=== PATIENT | male | born 1995 | race Caucasian/White ===

== ENCOUNTER → 2018-03-05 13:30 | Outpatient (CLI) | payer BC, MEDICAID, SELFPAY ==
--- NOTE | 2018-03-05 13:33 | XR_ITS ---
XR foot wt bearing LT 3V HISTORY: ITS.REASON: pain ORDERING PHYSICIAN: Concepcion French DPM PATIENT AGE: 22 years COMPARISON: None FINDINGS: No fracture or dislocation. No lytic or blastic change. There is normal mineralization.. The joint spaces are well-preserved. No significant degenerative/arthritic changes. No erosive changes evident. IMPRESSION: Negative, no acute finding
--- NOTE | 2018-03-05 13:33 | XR_ITS ---
XR foot wt bearing RT 3V HISTORY: ITS.REASON: pain ORDERING PHYSICIAN: Concepcion French DPM PATIENT AGE: 22 years COMPARISON: None FINDINGS: There is a nondisplaced oblique fracture involving the tuft of the distal phalanx of the fourth toe. There is mild soft tissue swelling of the fourth toe. No other significant anomalies are evident. IMPRESSION: Nondisplaced oblique fracture distal phalanx fourth toe
== END ==
PROVIDERS: Visit Provider Podiatrist
DX: T14.8XXA Other injury of unspecified body region, initial encounter (principal)
CPT/HCPCS: 73630

== ENCOUNTER → 2018-04-04 16:10 | Outpatient (CLI) | payer BC, MEDICAID, SELFPAY ==
--- NOTE | 2018-04-04 16:11 | XR_ITS ---
XR foot wt bearing RT 3V Ordering Physician: Concepcion French DPM Patient Age: 22 years: Male HISTORY: ITS.REASON: fracture follow up TECHNIQUE: 3 views weightbearing right foot COMPARISON : 03/05/2018 right foot FINDINGS The oblique fracture passing through the distal tuft of the fourth toe is again seen. The fracture line is slightly less evident suggesting interval early healing at this nondisplaced fracture. The lateral film weightbearing shows relative pes planus at the foot. Metatarsals tarsals unremarkable. IMPRESSION: 1. early healing at the stable oblique fracture distal tuft fourth toe
== END ==
PROVIDERS: Visit Provider Podiatrist
DX: S92.501A Displaced unspecified fracture of right lesser toe(s), initial encounter for closed fracture (principal); M79.674 Pain in right toe(s)
CPT/HCPCS: 73630

== ENCOUNTER 2023-11-09 10:53 | Emergency (ER) | payer MEDICAID, SELFPAY ==
--- NOTE | 2023-11-09 10:51 | ECG_ITS ---
APPROVED REPORT Exam: Resting ECG HR:59 bpm ECG Measurements Heart Rate 59 AXES DC 175 P 80 QRSd 92 QRS 92 QT 355 T 79 QTc 354 Conclusion SINUS BRADYCARDIA WITH SINUS ARRHYTHMIA BORDERLINE RIGHT AXIS DEVIATION [QRS AXIS > 90] ST ELEVATION, PROBABLY EARLY REPOLARIZATION [ST ELEVATION WITH NORMALLY INFLECTED T-WAVE] BORDERLINE ECG UNCONFIRMED REPORT Electronically signed by : SOFY MUNOZ, 11/09/2023 17:10:33
[2023-11-09 10:53] VITALS: BP 121/83; PULSE 68; RESP 18; TEMP 36.6; O2SAT 100; BMI 21.6
--- NOTE | 2023-11-09 10:59 | HMH.EDGENADL ---
Discharge Plan Disposition Patient Disposition: Home, Self-Care Condition: Good Prescriptions Prescriptions: New dicyclomine 20 mg tablet 20 mg PO BID Qty: 20 0RF omeprazole 20 mg capsule,delayed release(DR/EC) 20 mg PO DAILY 28 Days Qty: 28 0RF ondansetron 4 mg tablet,disintegrating 4 mg PO Q8H PRN (Reason: nausea and vomiting) 3 Days Qty: 10 0RF No Action meloxicam [Mobic] 7.5 mg tablet 7.5 mg PO ONCE Qty: 30 2RF ibuprofen 600 MG tablet 600 mg PO Q6H PRN (Reason: Moderate Pain) Qty: 20 0RF Referrals Follow up/Referrals: Radha Bartlett [Primary Care Provider] - See instructions Activity Restrictions/Add. Instructions Additional Instructions/Restrictions: Please return to the emergency department if you experience any new or worsening symptoms. Clinical Impressions Clinical Impression: Upper respiratory infection, Acute chest pain Stand Alone Forms Stand Alone Forms: Work/School Release Instructions Patient Instructions: DI for Atypical Chest Pain Discharge ED Provider: Uzair Levy General Adult HPI General Chief complaint: Chest Pain Stated complaint: chest pain Time Seen by Provider: 11/09/23 10:55 History of Present Illness HPI narrative: Patient is a 28-year-old male with no reported chronic medical conditions who presents with upper respiratory symptoms, discomfort in his chest wall that is exacerbated by coughing, no syncope or presyncope or palpitations, this occurs in the setting of multiple sick contacts and decreased p.o. intake. He denies any recreational drug use. He denies any daily medications. He has had similar symptoms before in the setting of upper respiratory illnesses. He describes chills, no fevers, no abdominal pain, the discomfort he describes in his chest wall is nonpleuritic nonexertional nonradiating and reproducible to palpation. It is parasternal in nature. It is mild in characteristic. It is improving in course. He denies any significant coronary family history, denies any personal history of heart conditions, states he is presented to the emergency department in the past for acute chest pain multiple years ago however was told that his workup was reassuring Please note that above description of symptoms, in this electronic medical record under categorization of recalled from ER triage doctor by RN are reflective of an initial nursing assessment, however, is not reflective of my full history and physical exam that was personally taken and clarified. Consequentially, this preceding description of symptoms, which may include the patient's categorized chief complaint in the EMR, do not reflect my personal clinical impression, and the ultimate description of history of present illness and patient stated complaints should be deferred to this section of the note. Unless stated otherwise or congruent with this section of the note, additional signs, symptoms, or incongruence should be interpreted as inaccurate with my clinical impression. Related Data Previous Rx's Medication Instructions Recorded ibuprofen 600 mg tablet 600 mg PO Q6H PRN Moderate Pain 02/07/18 #20 tabs meloxicam 7.5 mg tablet (Mobic) 7.5 mg PO ONCE pain #30 tabs 04/04/18 dicyclomine 20 mg tablet 20 mg PO BID #20 tabs 11/09/23 omeprazole 20 mg capsule,delayed 20 mg PO DAILY 28 days #28 caps 11/09/23 release ondansetron 4 mg disintegrating 4 mg PO Q8H PRN nausea and 11/09/23 tablet vomiting 3 days #10 tabs Allergies Allergy/AdvReac Type Severity Reaction Status Date / Time No Known Allergies Allergy Verified 04/04/18 15:57 [facility] Disclaimer: The information contained in this section may have been updated after the patient was seen, as this information can be updated by other users. Social History Smoking Status: Current every day smoker alcohol intake: never substance use type: denies use current occupational status: employed Travel in the last 8 weeks: None ROS Obtained: Yes Systems reviewed as appropriate & no additional complaints except as documented As per HPI Physical Exam General General appearance: alert and in no apparent distress Comment: Fatigued appearing however nontoxic, chest wall tenderness to palpation, dry mucous membranes Head Head exam: atraumatic and normocephalic Eye Eye exam: Present normal appearance Neck Neck exam: Present normal inspection Chest Chest inspection: Present normal inspection and symmetric chest wall rise Respiratory Respiratory exam: Present normal lung sounds bilaterally; Absent respiratory distress Cardiovascular Cardiovascular exam: Present regular rate and normal rhythm Abdominal Exam Abdominal exam: Present soft Neurological Exam Neurological exam: Present alert and oriented X3 Psychiatric Psychiatric exam: Present normal affect and normal mood Skin Skin exam: Present warm and dry Medical Decision Making Medical Records Medical records reviewed: Yes I reviewed the patient's medical records. Abraham Inquiry Pt receiving controlled substance: No Vital Signs: 11/09/23 10:53 11/09/23 11:00 11/09/23 12:00 Temperature 97.9 F Temperature Source Oral Pulse Rate 67 64 Pulse Rate [Radial] 68 Respiratory Rate 18 Blood Pressure 116/78 135/81 Blood Pressure [Right Arm] 121/83 Blood Pressure Mean Blood Pressure Mean [Right Arm] 95 Blood Pressure Source Blood Pressure Source [Right Arm] Automatic Cuff Blood Pressure Position Blood Pressure Position [Right Arm] Sitting 02 Sat by Pulse Oximetry 100 99 98 Oxygen Delivery Method Room Air Room Air Room Air 11/09/23 12:31 11/09/23 13:04 Temperature 98.1 F Temperature Source Oral Pulse Rate 54 L 69 Pulse Rate [Radial] Respiratory Rate 18 18 Blood Pressure 86/64 L 151/97 H Blood Pressure [Right Arm] Blood Pressure Mean 71 Blood Pressure Mean [Right Arm] Blood Pressure Source Automatic Cuff Blood Pressure Source [Right Arm] Blood Pressure Position Sitting Blood Pressure Position [Right Arm] 02 Sat by Pulse Oximetry 100 Oxygen Delivery Method Room Air Lab Data Lab Results 11/09/23 10:58: WBC 8.7, RBC 4.83, Hgb 14.7, Hct 43.8, MCV 90.8, MCH 30.4, MCHC 33.5, RDW 12.3, Plt Count 311, MPV 7.5, Neut % (Auto) 51.0, Lymph % (Auto) 40.5, [place] % (Auto) 5.5, Eos % (Auto) 2.1, Baso % (Auto) 1.0, Neut # (Auto) 4.4, Lymph # (Auto) 3.5, [place] # (Auto) 0.5, Eos # (Auto) 0.2, Baso # (Auto) 0.1, Sodium 139, Potassium 4.0, Chloride 105, Carbon Dioxide 32 H, Anion Gap 6.0, BUN 11, Creatinine 1.10, Estimated Creat Clear 100, Estimated GFR 80, Est GFR ( Amer) 97, Glucose 93, Calcium 9.1, Total Bilirubin 0.7, AST 28, ALT 22, Alkaline Phosphatase 60, Troponin I < 0.01, Total Protein 7.0, Albumin 4.3, Globulin 2.7, Albumin/Globulin Ratio 1.6, Lipase 40, SARS-CoV-2 (PCR) Not detected, Influenza A Untype (PCR) Not detected, Influenza Type B (PCR) Not detected 11/09/23 10:58 11/09/23 10:58 Orders (Tests/Meds): ED MEDICATIONS Discontinued Medications Generic Name Dose Route Start Last Admin Trade Name Delio PRN Reason Stop Dose Admin Ondansetron HCl 4 mg 11/09/23 11:16 11/09/23 11:44 Ondansetron 4mg/2ml Vial IV 11/09/23 11:17 4 mg ONCE ONE Administration Sodium Chloride 10 ml 11/09/23 11:11 Sodium Chloride 0.9% 10ml Flush Syringe IV 12/09/23 11:10 NEEDED PRN Maintain IV Site ORDERS Category Date Time Status Chest XR 2 view (NOT portable) [XR chest 2V] Stat Exams 11/09/23 11:12 Completed Complete Blood Count Auto Diff Stat Lab 11/09/23 10:58 Completed Comprehensive Metabolic Panel Stat Lab 11/09/23 10:58 Completed Lipase Stat Lab 11/09/23 10:58 Completed Rapid PCR Covid and Flu A/B Stat Lab 11/09/23 10:58 Completed Troponin I Stat Lab 11/09/23 10:58 Completed HEART Score History (anamnesis): Slightly suspicious ECG: Non-specific disturbance Age: <45 years Risk factors: No known risk factors Troponin: </= normal limit HEART Score: 1 Medical Decision Narrative: Patient with history and exam per above presenting for evaluation of upper respiratory symptoms associated with chest wall discomfort that started shortly prior to arrival Diagnoses considered include ACS, pericarditis, PE, pneumothorax, pneumonia, GERD, costochondritis, referred pain, viral syndrome ED workup and treatment included: ED MEDICATIONS Discontinued Medications Generic Name Dose Route Start Last Admin Trade Name Delio PRN Reason Stop Dose Admin Ondansetron HCl 4 mg 11/09/23 11:16 11/09/23 11:44 Ondansetron 4mg/2ml Vial IV 11/09/23 11:17 4 mg ONCE ONE Administration Sodium Chloride 10 ml 11/09/23 11:11 Sodium Chloride 0.9% 10ml Flush Syringe IV 12/09/23 11:10 NEEDED PRN Maintain IV Site ORDERS Category Date Time Status Chest XR 2 view (NOT portable) [XR chest 2V] Stat Exams 11/09/23 11:12 Completed Complete Blood Count Auto Diff Stat Lab 11/09/23 10:58 Completed Comprehensive Metabolic Panel Stat Lab 11/09/23 10:58 Completed Lipase Stat Lab 11/09/23 10:58 Completed Rapid PCR Covid and Flu A/B Stat Lab 11/09/23 10:58 Completed Troponin I Stat Lab 11/09/23 10:58 Completed Labs were independently interpreted by me, significant for no leukocytosis, initial troponin undetectable Imaging was independently visualized and interpreted by me, significant for no acute consolidative process. Please refer to radiology report for full details. Patient's EKG was independently visualized and interpreted by me significant for sinus rhythm, early repolarization, no acute ST changes My clinical impression at this time is most consistent with hypovolemia, possible costochondritis, upper respiratory infection of unspecified etiology. After shared decision making including discussion of the benefits of serial troponin testing, patient is comfortable with discharge and request to be discharged at this time. I discussed my clinical impression with patient and answered all questions. The patient was advised that persistent or worsening symptoms require further evaluation. I confirmed the patient's understanding of this discussion. Critical Care Critical Care Time Critical Care Time: No
[2023-11-09 11:00] VITALS: BP 116/78; PULSE 67; O2SAT 99
--- NOTE | 2023-11-09 11:12 | XR_ITS ---
FINAL REPORT CLINICAL HISTORY: chest pain COMPARISON: None FINDINGS: PA and lateral views of the chest are obtained. There is no prior exam for comparison. The cardiac and mediastinal silhouettes are within normal limits. The lungs are clear. There is no pleural effusion, pneumothorax, or acute osseous abnormality. IMPRESSION: No radiographic evidence of acute cardiac or pulmonary disease. Reviewed, Interpreted and Dictated by Yuki Bravo MD Transcribed by Cherie Saucedo Authenticated and [facility]
[2023-11-09 11:17] LABS: Coronavirus 19, PCR Not Detected (NotDetected); Influenza A, PCR Not Detected (NotDetected); Influenza B, PCR Not Detected (NotDetected)
[2023-11-09 11:19] LABS: Basophils # 0.1 K/mm3 (0-0.2); Eosinophils # 0.2 K/mm3 (0.0-0.4); Eosinophils % 2.1 % (0.1-12.0); Hematocrit 43.8 % (42.0-52.0); Hemoglobin 14.7 g/dL (14.1-18.0); Lymphocytes # 3.5 K/mm3 (0.7-4.5); Lymphocytes % 40.5 % (10-50); Mean Corpuscular HGB Conc 33.5 g/dL (31.8-35.4); Mean Corpuscular Hemoglobin 30.4 pg (27.0-31.2); Mean Corpuscular Volume 90.8 fl (80-94); Mean Platelet Volume 7.5 fl (7.4-10.4); Monocytes # 0.5 K/mm3 (0.1-1.0); Monocytes % 5.5 % (1.7-9.3); Neutrophils # 4.4 K/mm3 (1.8-7.8); Platelet Count 311 K/mm3 (142-424); Red Blood Count 4.83 M/mm3 (4.60-6.20); Red Cell Distribution Width 12.3 % (11.5-17.5); White Blood Count 8.7 K/mm3 (4.8-10.8)
[2023-11-09 11:27] LABS: Alanine Aminotransferase 22 U/L (12-78); Albumin Level 4.3 g/dl (3.5-5.0); Albumin/Globulin Ratio 1.6 (1.1-1.8); Alkaline Phosphatase 60 U/L (38-126); Aspartate Amino Transferase 28 U/L (17-59); Bilirubin,Total 0.7 mg/dl (0.2-1.3); Blood Urea Nitrogen 11 mg/dl (9-20); Calcium 9.1 mg/dl (8.4-10.2); Carbon Dioxide 32 mmol/L (22.0-30.0); Chloride 105 mmol/L (98-107); Creatinine Clearance Estimated 100 mL/min (50-200); Estimated Glomerular Filt Rate 80 ml/min (>60); GFR (African American) 97 ML/MIN (>60); Globulin 2.7 g/dL (1.3-3.2); Glucose 93 mg/dl (74-100); Sodium 139 mmol/L (136-145)
--- NOTE | 2023-11-09 11:28 | PC.NURSE ---
PT TO XR
--- NOTE | 2023-11-09 11:32 | PC.NURSE ---
Addendum entered by Carolina Salmeron, EMT 11/09/23 11:33: from xray Original Note: pt return from ct
[2023-11-09] MEDS: ONDANSETRON 4MG/2ML VIAL 4 MG IV (11:44)
[2023-11-09 12:00] VITALS: BP 135/81; PULSE 64; O2SAT 98
[2023-11-09 12:12] LABS: Troponin I < 0.01 ng/ml (0.00-0.034)
--- NOTE | 2023-11-09 12:12 | PC.NURSE ---
pt is resting in bed no needs at this time call light in reach
[2023-11-09 12:31] VITALS: BP 86/64; PULSE 54; RESP 18; O2SAT 100
[2023-11-09 12:42] LABS: Lipase 40 U/L (23-300)
--- NOTE | 2023-11-09 12:58 | PC.NURSE ---
rounded on pt stated no needs at this time,call light in reach
[2023-11-09 13:04] VITALS: BP 151/97; PULSE 69; RESP 18; TEMP 36.7; O2SAT 98
== END 2023-11-09 13:05 | disposition home or self-care (01) ==
PROVIDERS: Emergency Provider Emergency Medicine; PCP Nurse Practitioner Family
DX: R07.89 Other chest pain (principal); R05.9 Cough, unspecified; R68.83 Chills (without fever); J06.9 Acute upper respiratory infection, unspecified; F17.200 Nicotine dependence, unspecified, uncomplicated
CPT/HCPCS: 71046; 80053; 83690; 84484; 85025; 87636; 93005; 96374; 99285; J2405

== ENCOUNTER 2024-08-26 11:16 | Emergency (ER) | payer MEDICAID, SELFPAY ==
[2024-08-26 11:25] VITALS: BP 121/75; PULSE 76; RESP 19; TEMP 36.8; O2SAT 98; BMI 22.3
--- NOTE | 2024-08-26 11:40 | US_ITS ---
FINAL REPORT CLINICAL HISTORY: PAIN TO LEFT TESTICLE-- PT STATES BB SIZE NODLE LOWER LEFT FINDINGS: SCROTAL ULTRASOUND Testes have a homogeneous architecture. No masses are seen. Normal flow is demonstrated by Doppler exam. There is a small epididymal cyst on the right measuring 4 mm. There is no evidence of torsion. There is mild prominence of the left epididymis raising question of epididymitis. Small left hydrocele is identified. IMPRESSION: No evidence of testicular neoplasm. Probable left epididymitis with epididymal enlargement and small left hydrocele. Reviewed, Interpreted and Dictated by Chantal Cardoza MD Transcribed by Mikki Abdullahi Authenticated and [facility]
--- NOTE | 2024-08-26 11:50 | ED_ITS ---
Discharge Plan Disposition Patient Disposition: Home, Self-Care Condition: Good Prescriptions Prescriptions: New levofloxacin 500 mg tablet 500 mg PO DAILY Qty: 10 0RF No Action meloxicam [Mobic] 7.5 mg tablet 7.5 mg PO ONCE Qty: 30 2RF ibuprofen 600 MG tablet 600 mg PO Q6H PRN (Reason: Moderate Pain) Qty: 20 0RF dicyclomine 20 mg tablet 20 mg PO BID Qty: 20 0RF omeprazole 20 mg capsule,delayed release(DR/EC) 20 mg PO DAILY 28 Days Qty: 28 0RF ondansetron 4 mg tablet,disintegrating 4 mg PO Q8H PRN (Reason: nausea and vomiting) 3 Days Qty: 10 0RF Referrals Follow up/Referrals: Radha Bartlett [Primary Care Provider] - See instructions Isrrael Franco MD [Staff Physician] - See instructions (Call office for appointment) Activity Restrictions/Add. Instructions Additional Instructions/Restrictions: Take medication as prescribed Follow up with your Family Doctor Follow up with Urology Go straight to ER if any worsening of tenderness or swelling in your scrotum Clinical Impressions Clinical Impression: Epididymitis Instructions Patient Instructions: Epididymitis, DI for Epididymitis, Levofloxacin Print Language Print Language: Danish Discharge ED Provider: Farideh Ellis [facility] [place] HPI General Stated complaint: mass on testicle Mode of Arrival: Ambulatory Source of Information: Patient Limitations: No Limitations Time Seen by Provider: 08/26/24 11:50 Description of Symptoms (Recalled from Triage Doc. by RN): PATIENT C/O LUMP AND PAIN TO LEFT TESTICLE THAT HE NOTICED YESTERDAY. PATIENT STATES PAIN IS WORSE TODAY. PATIENT DENIES ANY PAIN OR PROBLEMS WITH URINATION HEENT Symptoms (Recalled from RN notes): No Resp Symptoms (Recalled from RN notes): No Skin Symptoms (Recalled from RN notes): No MS Symptoms (Recalled from RN notes): No Functional Status (Recalled from RN notes): WNL History of Present Illness Provider Complaint: Patient states that last night he noticed a lump in his left testicle States that it was a little sore but today the soreness is worse Denies trouble urinating, denies known injury, denies stomach or back pain Related Data Previous Rx's ?Medication ?Instructions ?Recorded ibuprofen 600 mg tablet 600 mg PO Q6H PRN Moderate Pain 02/07/18 #20 tabs meloxicam 7.5 mg tablet (Mobic) 7.5 mg PO ONCE pain #30 tabs 04/04/18 dicyclomine 20 mg tablet 20 mg PO BID #20 tabs 11/09/23 omeprazole 20 mg capsule,delayed 20 mg PO DAILY 28 days #28 caps 11/09/23 release ondansetron 4 mg disintegrating 4 mg PO Q8H PRN nausea and 11/09/23 tablet vomiting 3 days #10 tabs levofloxacin 500 mg tablet 500 mg PO DAILY #10 tabs 08/26/24 Allergies Allergy/AdvReac Type Severity Reaction Status Date / Time No Known Allergies Allergy Verified 04/04/18 15:57 Worker's Comp Is this a Worker's Comp case?: No [facility] Disclaimer: The information contained in this section may have been updated after the patient was seen, as this information can be updated by other users. Social History (Updated 11/11/23 @ 10:57 by Uzair Levy MD) Smoking Status: Current every day smoker alcohol intake: never substance use type: denies use current occupational status: employed Travel in the last 8 weeks: None Have you lived/traveled outside [place] in past 30 days?: No Contact w/someone who lives/traveled outside US past 30 days?: No Exposure to someone with infectious disease in past 14 days?: No Do you have a fever (greater than 100.4 F or 38 C)?: No Have you tested positive for COVID-19: No Exposed to someone with COVID-19 in past 14 days?: No Do you have a sore throat?: No Do you have a cough?: No Do you have any weakness?: No Do you have any diarrhea?: No Are you experiencing any unusual bleeding?: No Do you have any muscle aches/pain?: No Do you have any abdominal pain?: No Are you experiencing loss of taste or smell?: No ROS Obtained: Yes All systems reviewed & no additional complaints except as documented and Yes Systems reviewed as appropriate & no additional complaints except as documented Constitutional Constitutional: Reports system reviewed and no additional complaints, except as documented, Reports as per HPI, Denies body ache, Denies chills and Denies fever(s) ENT Ears, Nose, Mouth, and Throat: Reports system reviewed and no additional complaints, except as documented and Reports as per HPI Cardiovascular Cardiovascular: Reports system reviewed and no additional complaints, except as documented and Reports as per HPI Respiratory Respiratory: Reports system reviewed and no additional complaints, except as documented and Reports as per HPI Gastrointestinal Gastrointestingal: Reports system reviewed and no additional complaints, except as documented and as per HPI; Denies abdominal pain, nausea or vomiting Genitourinary Male Genitourinary: Reports system reviewed and no additional complaints, except as documented, Reports as per HPI, Denies difficulty urinating, Denies flank pain, Denies genital lesions, Denies genital pain, Denies hematuria, Reports testicular pain (pain in left testicle area), Denies urinary frequency and Denies urinary urgency Musculoskeletal Musculoskeletal: Reports system reviewed and no additional complaints, except as documented, Reports as per HPI and Denies back pain Physical Exam General General appearance: alert and in no apparent distress Respiratory Respiratory exam: Present normal lung sounds bilaterally; Absent respiratory distress or wheezes Cardiovascular Cardiovascular exam: Present regular rate, normal rhythm and normal heart sounds Abdominal Exam Abdominal exam: Present soft and normal bowel sounds; Absent distention, tenderness, guarding or rebound exam: Present testicular tenderness (left side); Absent urethral discharge or scrotal swelling Expanded Exam exam: Absent penile swelling, erythema, balanitis, priapism or ulcerations Scrotal exam: left: testicular tenderness and epididymal tenderness and bilateral: cremasteric reflex present Neurological Exam Neurological exam: Present alert, oriented X3 and normal gait Medical Decision Making Medical Records Screening: Per USPSTF and CDC recommendations, given the prevalence of disease in our region, it is our hospital?s policy to screen for HIV and viral Hepatitis for all patients aged 18 and over and those with ongoing risk factors. Abraham Inquiry Pt receiving controlled substance: No Abraham was queried for this patient: No Vital Signs: 08/26/24 11:25 Temperature 98.3 F Temperature Source Oral Pulse Rate [Left Brachial] 76 Respiratory Rate 19 Blood Pressure [Left Arm] 121/75 Blood Pressure Mean [Left Arm] 90 Blood Pressure Source [Left Arm] Automatic Cuff Blood Pressure Position [Left Arm] Sitting 02 Sat by Pulse Oximetry 98 Oxygen Delivery Method Room Air Lab Data Lab results reviewed: Yes I reviewed the patient's lab results. Orders (Tests/Meds): ORDERS Category Date Time Status UA [Urinalysis and Microscopic] Stat Lab 08/26/24 11:43 Ordered Testicular US [US Testicular] Stat Ultrasound 08/26/24 11:[address] Data ED CT Reviewed: Yes I have viewed the radiologist's interpretation US Data US Images: Other (testicular US) ED US Reviewed: Yes I have viewed radiologist's interpretation Findings Narrative: IMPRESSION: No evidence of testicular neoplasm. Probable left epididymitis with epididymal enlargement and small left hydrocele.
[2024-08-26 12:30] LABS: Microscopic, Urine URINE MICROSCOPIC (MICROSCOPIC)
[2024-08-26 13:52] LABS: Appearance,Urine CLEAR (Clear); Bilirubin,Urine Negative (Negative); Blood, Urine Negative (Negative); Color,Urine YELLOW (Yellow); Glucose,Urine (UA) Negative (Negative); Ketones,Urine Negative (Negative); Leukocyte Esterase,Urine Negative (Negative); Nitrate,Urine Negative (Negative); Protein,Urine Negative (Negative); Urobilinogen,Urine 0.2 EU/dl (0.2)
[2024-08-26 14:06] LABS: Squamous Epithelial Cell,Urine Occasional #/hpf (0-5); WBC,Urine Occasional #/hpf (0-3)
[2024-08-26] MEDS: cefTRIAXone 500MG VIAL 500 MG IM (14:10)
[2024-08-26] MEDS: LIDOCAINE 1% 5ML PF VIAL IM (14:10)
[2024-08-26 14:11] VITALS: BP 121/75; PULSE 76; RESP 19; TEMP 36.8; O2SAT 98
[2024-08-27 22:17] LABS: Neisseria gonorrhoeae, NAA Negative (Negative)
== END 2024-08-26 14:21 | disposition home or self-care (01) ==
PROVIDERS: Emergency Provider Nurse Practitioner; PCP Nurse Practitioner Family
DX: N45.1 Epididymitis (principal); D29.22 Benign neoplasm of left testis; N50.812 Left testicular pain
CPT/HCPCS: 76870; 81001; 87491; 87591; 99212; G0381; J0696

== ENCOUNTER 2025-04-30 10:41 | Outpatient (CLI) | payer MEDICAID, SELFPAY ==
--- NOTE | 2025-04-30 | CA_ITS ---
APPROVED REPORT Exam: Exercise Treadmill Technologist: Kendra Valdivia Ht: 5 ft 11 in Wt: 157 lbs BSA: 1.90 m2 Medical History Medications: Rosuvastatin Stress Test Details Test: Exercise stress testing was performed using a Steve protocol. HR Resting HR: 68 bpm Max Heart Rate (APMHR): 192 bpm Max HR Achieved: 165 bpm Target HR (85% APMHR): 163 bpm % of APMHR: 86 Recovery HR: 92 bpm HR response to stress: Normal HR response to stress BP Resting BP: 120.0/79.0 mmHg Max BP: 138.0/70.0 mmHg Recovery BP: 114.0/73.0 mmHg ECG Resting ECG: SR incomplete RBBB- No ectopy. Stress EC.[address] depression ST Change: PACs Clinical Exercise duration: 9:25 min Highest Stage Achieved: IV Exercise capacity: 10.3 METs Stress ECG Conclusion Test stopped due to leg fatigue. Max HR: 160 % of PM: 83% Max BP: 138/70 METs: 10.3 Test stopped due to: leg fatigue. Symptoms: None. Arrhythmias/Ectopy: PAC. ST-T Changes: 0.[address] segment changes. CONCLUSION Average exercise capacity. No evidence of ischemia on ECG at peak stress. Electronically signed by : Rachel Alberto MD 04/30/2025 15:44:59
--- OUTSIDE RECORDS SUMMARY | 2025-04-30 10:42 | XMS_ITS | Continuity of Care Document ---
Author Name [facility] Organization [facility] Care Team Providers Care Patent Solicitor Name Role Phone [facility] Unavailable Unavailable Problems Combined list of problems from Department of Defense and Veterans Affairs facilities. It does not include entries that were removed or entered in error. Problem Status Onset Date Problem Type Date of Resolution Comme nts Source Suicide attempt Active Condition DoD Other recurrent depressive disorders Active Condition DoD Allergies, Adverse Reactions, Alerts Combined list of allergies from Department of Defense and Veterans Affairs facilities. It does not include entries that were removed or entered in error. Substance Category Reaction Severity Reaction type Status Date Reported Comments Source No Known Allergies Drug allergy (disorder) active 0 [facility] Immunizations Combined list of available immunizations from the Department of Defense and Veterans Affairs facilities. Immunization Series Date Given Administered By Site Reaction Lot Number CVX Code Drug Computer Lab Aide Status Comments Source poliovirus vaccine, inactivated 2 2019 DAVIDSON CHEN [id number] 10 Seqirus (SEQ) complet ed polioviru s vaccine, inactivat ed DoD tetanus toxoid, reduced diphtheria toxoid, and acellular pertu is vaccine, adsorbed 1 2019 DAVIDSON CHEN [id number] [facility] SmithKline (SKB) complet ed tetanus toxoid, reduced diphtheri a toxoid, and acellular pertussis vaccine, adsorbed DoD meningococcal oligosacchari de (groups A, C, Y and W-135) diphtheria toxoid conjugate vaccine (MCV4O) 1 2019 DAVIDSON CHEN [id number] Sanofi Pasteur (PMC) complet ed meningoco ccal oligosacc haride (groups A, C, Y and W-135) diphtheri a toxoid conjugate vaccine (MCV4O) DoD Adenovirus, type 4 and type 7, live, oral 1 2019 DAVIDSON CHEN [id number] 143 [facility] ([facility]) complet ed Adenoviru s, type 4 and type 7, live, oral DoD Influenza, injectable, Madin [place] Canine Kidney, preservative free, quadrivalent 1 2019 DAVIDSON CHEN [id number] 171 Seqirus (SEQ) complet ed Influenza , injectabl e, Madin Mariajose Canine Kidney, preservat virgie free, quadrival ent DoD measles, mumps and rubella virus vaccine 1 2019 KATH LOPEZ [id number] Merck (MSD) compl et ed measles, mumps and rubella virus vaccine DoD poliovirus vaccine, inactivated 1 2019 KATH LOPEZ [id number] 10 Seqirus (SEQ) com plet ed polioviru s vaccine, inactivat ed DoD hepatitis B vaccine, adult dosage 1 2019 KATH LOPEZ [id number] SmithKline (SKB) complet ed hepatitis B vaccine, adult dosage DoD hepatitis A vaccine, adult dosage 1 2019 KATH LOPEZ [id number] SmithKline (SKB) complet ed hepatitis A vaccine, adult dosage DoD tetanus toxoid, reduced diphtheria toxoid, and acellular pertu is vaccine, adsorbed 2019 KATH LOPEZ [id number] 115 SmithKline (SKB) complet ed tetanus toxoid, reduced diphtheri a toxoid, and acellular pertussis vaccine, adsorbed DoD meningococcal oligosacchari de (groups A, C, Y and W-135) diphtheria toxoid conjugate vaccine (MCV4O) 2019 KATH LOPEZ [id number] 136 Sanofi Pasteur (PMC) complet ed meningoco ccal oligosacc haride (groups A, C, Y and W-135) diphtheri a toxoid conjugate vaccine (MCV4O) DoD Adenovirus, type 4 and type 7, live, oral 2019 KATH LOPEZ [id number] 143 [employer] ([facility]) complet ed Adenoviru s, type 4 and type 7, live, oral DoD Influenza, injectable, Madin [place] Canine Kidney, preservative free, quadrivalent 1 2019 KATH LOPEZ [id number] 893 171 Seqirus (SEQ) complet ed Influenza , injectabl e, Madin [place] Canine Kidney, preservat virgie free, quadrival ent DoD Encounters Combined list of: 1) Encounters from Department of Veterans Affairs facilities going backup to the last 18 months, not all VA inpatient encounters are included; 2) Encounters from the Department of Defense facilities going backup to 280 months. Location Location Details Encounter Type Encounter Number Reason For Visit Attending Provider ADM Date DC Date Status [facility] [id number] UJVENAL MAYA 11/26 Released w/o Limitations [facility] Dillan carroll(MCR D Hearing Conserv ation) [facility] n([facility]) OUTPATIENT [id number] DAVE LAGUNAS Damaris 11/26 Released w/o Limitations [facility] Dillan carroll([facility] Optomet ry Clinic) [facility] n([facility]D [employer]) OUTPATIENT [id number] INITIAL APPOINT MENT FOR IMMUNIZ ATYOLY CHEN DAVIDSONKATLYN DAVIS 12/02 Released w/o Limitations [facility] Dillan carroll(MCR D [employer] ) [facility] melita(MCRD Recruit Sick Call) OUTPATIENT [id number] Notes Entered by: TYRONE LAGUNA 15 Dec 2019 0813 ------- ------- ------- ------- -- ISO-Pos sible Sinusit is DELL PIZARRO 12/14 Sick at Home/Quarter s [facility] Dillan carroll(MCR D Recruit Sick Call) [facility] melita(MCRD Recruit Sick Call) OUTPATIENT [id number] Notes Entered by: TYRONE LAGUNA 18 Dec 2019 0738 ------- ------- ------- ------- -- ISO- URI f/u DELL PIZARRO 12/17 Released w/o Limitations [facility] Dillan carroll(MCR D Recruit Sick Call) [facility] melita(MCRD Recruit Sick Call) OUTPATIENT [id number] Notes Entered by: TYRONE LAGUNA 19 Dec 2019 0733 ------- ------- ------- ------- -- MRP- Rib Pain DELL PIZARRO 12/18 Released with Work/Duty Limitations [facility] Dillan glen(MCR D Recruit Sick Call) [facility] n([facility] Rec[employer] Medical Process) OUTPATIENT [id number] Notes Entered by: Thong MCNAIR 19 Jan 2020 1442 ------- ------- ------- ------- -- INITIAL VISIT FOR IMMUNIZ ATIONS JIN URBINA 01/18 Released w/o Limitations [facility] Dillan carroll([facility] [employer] ) [facility] Sparkle hua([facility] Med Dispo) OUTPATIENT [id number] Notes Entered by: Scott THOMPSON 27 Jan 2020 1033 ------- ------- ------- ------- -- YAMEL SHAFFER/ JUSTINE WELDON 01/26 Released w/o Limitations [facility] Dillan carroll([facility] Med Dispo) Procedures Combined list of: 1) Procedures from Department of Veterans Affairs facilities going back up to thelast 18 months, not all VA non-surgical procedures are included; 2) All procedures from the Department of Defense facilities. Procedure Procedure Type Code Date Perfomer Comments Sour e PSYCHIATRIC DIAGNOSTIC EVALUATION 0 [facility] SKIN TEST; TUBERCULOSIS, INTRADERMAL 0 [facility] MENINGOCOCCAL CONJUGATE VACCINE, SEROGROUPS A, C, W, Y, QUADRIVALENT, DIPHTHERIA TOXOID CARRIER (MENACWY-D) OR [id number] CARRIER (MENACWY-CRM), FOR INTRAMUSCULAR USE 0 [facility] SCREENING TEST OF VISUAL ACUITY, QUANTITATIVE, BILATERAL 0 [facility] PHYS/OTH QUALIFIED HEALTH SENIOR UI DEVELOPER QUALIFIED,EDUCATION ,TRAIN,LICENSURE/RE GULATION (WHEN APPLICABLE) EDUC SER RENDERED TO PATS IN A GRP SETTING (EG,,OBESIT Y,OR DIABETIC INSTRUCT) 0 [facility] Threshold Audiogram (Pure Tone) Automated Threshold Audiogram (Pure Tone) Automated 0208T JUVENAL MAYA Dr.-[facility] -[employer] Educational Services 33811 JUVENAL MAYA [facility] Screening Test Of Visual Acuity, Quantitative, Bilateral Screening Test Of Visual Acuity, Quantitative, Bilateral 59857 DAVE LAGUNAS [facility] Vaccines Viral Measles, Mumps and Rubella, Live Vaccines Viral Measles, Mumps and Rubella, Live 74106 KATH LOPEZ MMR; Series #: 1; 0.5 mL; SC; Left Arm; Mfg: Merck; Lot: [id number]; VIS given (Darcy: 04/24/2019). [facility] Vaccines Viral Polio, Inactivated (Salk) Vaccines Viral Polio, Inactivated (Salk) 53578 KATH LOPEZ IPV; Series #: 1; 0.5 mL; IM; Right Arm; Mfg: Seqirus; Lot: [id number]; VIS given (Darcy: 07/09/19; 07/15/15 - Multiple). [facility] Hepatitis A Vaccine Adult Dosage (Intramuscular Use) Hepatitis A Vaccine Adult Dosage (Intramuscular Use) 53230 KATH LOPEZ Hep A (Adult); Series #: 1; 1.0 mL; IM; Left Arm; Mfg: STYLHUNT; Lot: [id number]; VIS given (Darcy: 03/29/2016). [facility] Tdap Vaccine Tdap Vaccine 50721 KATH LOPEZ T dap; Series #: 1; 0.5 mL; IM; Left Arm; Mfg: STYLHUNT; Lot: [id number]; VIS given (Darcy: 11/03/14). [facility] Immunization Administration One Vaccine Immunization Administration One Vaccine 70836 KATH LOPEZ [facility] Immunization Administration Each Additional Vaccine Immunization Administration Each Additional Vaccine [address] Supervised Injection Intramuscular Antibiotic Supervised Injection Intramuscular Antibiotic 28820 KATH LOPEZ Venipuncture Venipuncture 07364 KATH LOPEZ D oD Immunization Admin Intranasal / Oral Each Additional Vaccine Immunization Admin Intranasal / Oral Each Additional Vaccine 66358 KATH LOPEZ Vaccines Adenovirus Type 4 Live, For Oral Use Vaccines Adenovirus Type 4 Live, For Oral Use 97796 KATH LOPEZ Vaccines Adenovirus Type 7 Live, For Oral Use Vaccines Adenovirus Type 7 Live, For Oral Use 56042 KATH LOPEZ DoD Tdap Vaccine Tdap Vaccine 53740 GREEN, LUCAS A DoD Vaccines Viral Polio, Inactivated (Salk) Vaccines Viral Polio, Inactivated (Salk) 34831 GREEN, LUCAS A DoD Skin Test Anergy Tuberculin Intradermal Skin Test Anergy Tuberculin Intradermal 87777 LUCAS MCNAIR Social History Combined list of available smoking, tobacco, and other social history from Department of Defense and Veterans Affairs facilities. Social History Type Response Date Comment Sour e This section is an empty social history section. DoD
--- OUTSIDE RECORDS SUMMARY | 2025-04-30 10:43 | XMS_ITS | Clinical Summary ---
Author Organization [facility] Address [address] [place] [address] Care Team Providers Care Cosmetic Sales Name Role Phone Radha Bartlett APRN Primary Care Provider Allergies No known active allergies Social History Tobacco Use Types Packs/Day Years Used Date Smoking Tobacco: Never Assessed Sex and Gender Information Value Date Recorded Sex Assigned at Not on file Legal Sex Male 7:54 PM EST Gender Identity Not on file Sexual Orientation Not on file Last Filed Vital Signs Vital Sign Reading Time Taken Comments Blood Pressure 110/72 04/30/2023 11:53 PM EDT Pulse 87 04/30/2023 11:53 PM EDT Temperature 37.3 C (99.2 F) 04/30/2023 11:53 PM EDT Respiratory Rate 17 04/30/2023 11:53 PM EDT Oxygen Saturation 100% 04/30/2023 11:53 PM EDT Inhaled Oxygen Concentration - - Weight 70.3 kg (155 lb) 04/30/2023 9:27 PM EDT Height 180.3 cm (5' 11 ) 12/16/2022 8:28 PM EDT Body Mass Index 21.62 12/16/2022 8:28 PM EDT Plan of Treatment Health Maintenance Due Date Last Done Comments [facility]-Depression Screening 1996 [facility]-/Child/Adol SDOH Screenings 1996 [facility]-Varicella Vaccines (1 of 2 - 13+ 2-dose series) 2009 [facility]- SDOH Screenings 2014 [facility]-Adult SDOH Screenings 2014 [facility]-Hepatitis B Vaccines (2 of 3 - 19+ 3-dose series) 12/31/2019 12/03/2019 [facility]-IPV Vaccines (3 of 3 - Adult catch-up series) 07/21/2020 01/19/2020, 12/03/2019 HPV Vaccines (1 - 3-dose SCDM series) 2023 [id number] Vaccine (1 - season) 2024 [facility]-Influenza Vaccine (#1) 2025 [facility]-DTaP,Tdap,and Td Vaccines (3 - Td or Tdap) 01/18/2030 01/19/2020, 12/03/2019 [facility]-Zoster Vaccines (1 of 2) 2046 [facility]-Hepatitis A Vaccines Aged Out 12/03/2019 No longer eligible based on patient's age to complete this topic [facility]-HIV Screening Completed 08/08/2022 [facility]-Hepatitis C Screening Completed 08/08/2022 [facility]-HIB Vaccines Aged Out No longer e ligible based on patient's age to complete this topic [facility]-Pneumococcal Vaccine: Pediatrics (0 to 5 Years) and At-Risk Patients (6 to 49 Years) Aged Out No longer eligible b ased on patient's age to complete this topic [facility]-Rotavirus Vaccines Aged Out No lo nger eligible based on patient's age to complete this topic Procedures Procedure Name Priority Date/Time Associated Diagnosis Comments HEPATITIS C ANTIBODY - ED W/REFLEX TO HCV QUANT PCR STAT 08/08/2022 11:02 PM EST HIV 1/2 ANTIBODY/ANTIGEN SCREEN WITH REFLEX TO HIV I/II DIFFERENTIATION STAT 08/08/2022 11:02 PM EST from Last 3 Months or Most Recently Relevant to Health Maintenance Results * HIV 1 & 2 Antibody/Antigen Screen (08/08/2022 11:02 PM EST) HIV 1 & 2 Antibody/Anti gen Screen Nonreactive Nonreactive 08/09/2022 1:33 AM EST [facility] Blood Venous blood specimen / Unknown Venipuncture / Unknown 08/08/2022 11:02 PM EST 08/08/2022 11:27 PM EST Denzel Mcdaniel MD LAB BLOOD ORDERABLES Final Resu lt [facility] [address] [place] [address] * Hepatitis C Antibody - ED (08/08/2022 11:02 PM EST) Hepatitis C Antibody Negative Negative 08/09/2022 1:32 AM EST [facility] Blood Venous blood specimen / Unknown Venipuncture / Unknown 08/08/2022 11:02 PM EST 08/08/2022 11:27 PM EST Denzel Mcdaniel MD LAB BLOOD ORDERABLES Final Resu lt Performing Organization Address City/[facility] Co de Phone Number [facility] [address] [place] [address] from Last 3 Months or Most Recently Relevant to Health Maintenance Insurance [facility] MEDICAID Care Teams Cosmetic Sales Relationship Specialty Start Date End Date Radha Bartlett APRN [address] [facility] [address] [place] [address] PCP - General 08/06/22
[2025-04-30 11:42] LABS: Hematocrit 39.9 % (42.0-52.0); Hemoglobin 13.8 g/dL (14.1-18.0); Immature Granulocytes % 0.1 %; Mean Corpuscular HGB Conc 34.6 g/dL (31.8-35.4); Mean Corpuscular Hemoglobin 29.6 pg (27.0-31.2); Mean Corpuscular Volume 85.6 fl (80-94); Nucleated Red Blood Cells % 0 %; Platelet Count 313 K/mm3 (142-424); Red Blood Count 4.66 M/mm3 (4.60-6.20); Red Cell Distribution Width-SD 35.2 fL; White Blood Count 7.3 K/mm3 (4.8-10.8)
[2025-04-30 12:14] LABS: Alanine Aminotransferase 26 U/L (12-78); Albumin Level 4.9 g/dl (3.5-5.0); Alkaline Phosphatase 61 U/L (38-126); Anion Gap 16.4 mEq/L (5-15); Aspartate Amino Transferase 29 U/L (17-59); Bilirubin,Direct 0.0 mg/dl (0.0-0.4); Bilirubin,Indirect 1.4 mg/dL (0.0-0.9); Bilirubin,Total 1.4 mg/dl (0.2-1.3); Bilirubin,Unconjugated 1.4 mg/dL (0.0-1.1); Blood Urea Nitrogen 13 mg/dl (9-20); Calcium 9.9 mg/dl (8.4-10.2); Carbon Dioxide 24 mmol/L (22.0-30.0); Chloride 105 mmol/L (98-107); Cholesterol 159 mg/dl (140-200); Creatinine,Serum 1.10 mg/dl (0.66-1.25); Estimated Glomerular Filt Rate 80 ml/min (>60); GFR (African American) 96 ML/MIN (>60); Glucose 80 mg/dl (74-100); HDL Cholesterol 39 mg/dl (40-60); Magnesium 2.3 mg/dl (1.6-2.3); Potassium 4.4 mmoL/L (3.5-5.1); Sodium 141 mmol/L (136-145); Total Protein,Serum 7.5 g/dl (6.3-8.2); Triglycerides 73 mg/dl (30-150)
[2025-04-30 13:12] LABS: Free T4 (Free Thyroxine) 1.15 ng/dl (0.78-2.19); Free Thyroxine Index 2.8 ug/dL (5.93-13.13); T4 (Thyroxine) 9.0 ug/dl (5.53-11.0); Thyroid Stimulating Hormone 1.52 uIU/mL (0.465-4.68); Triiodothryronine (T3) Uptake 31 % (23.5-40.5)
[2025-04-30 13:14] LABS: Thyroid Stimulating Hormone 1.49 uIU/mL (0.465-4.68)
== END 2025-04-30 23:59 | disposition home or self-care (01) ==
PROVIDERS: PCP Nurse Practitioner Family; Visit Provider Nurse Practitioner
DX: R07.89 Other chest pain (principal); R53.83 Other fatigue
CPT/HCPCS: 36415; 80048; 80061; 80076; 83735; 84436; 84439; 84443; 84479; 85025; 93016; 93017; 93018

== ENCOUNTER 2025-05-07 12:43 | Outpatient (CLI) | payer MEDICAID, SELFPAY ==
--- OUTSIDE RECORDS SUMMARY | 2025-05-07 12:44 | XMS_ITS | Continuity of Care Document ---
Author Name [facility] Organization [facility] Care Team Providers Care Paper Counter Name Role Phone [facility] Unavailable Unavailable Problems [...] Known Allergies Drug allergy (disorder) active 0 [facility] Immunizations Combined list of available immunizations from the Department of Defense and Veterans Affairs facilities. Immunization Series Date Given Administered By Site Reaction Lot Number CVX Code Drug Florist'S Decorator Status Comments Source poliovirus vaccine, inactivated 2 2019 DAVIDSON CHEN [id number] 10 Seqirus (SEQ) complet ed polioviru s vaccine, inactivat ed DoD tetanus toxoid, reduced diphtheria toxoid, and acellular pertu is vaccine, adsorbed 1 2019 DAVIDSON CHEN [id number] [facility] SmithKline (SKB) complet ed tetanus toxoid, reduced diphtheri a toxoid, and acellular pertussis vaccine, adsorbed DoD meningococcal oligosacchari de (groups A, C, Y and W-135) diphtheria toxoid conjugate vaccine (MCV4O) 1 2019 DAVIDSON CHEN [id number] Sanofi Pasteur (PMC) complet ed meningoco ccal oligosacc haride (groups A, C, Y and W-135) diphtheri a toxoid conjugate vaccine (MCV4O) DoD Adenovirus, type 4 and type 7, live, oral 1 2019 DAVIDSON CHEN [id number] 143 [facility] ([facility]) complet ed Adenoviru s, type 4 and type 7, live, oral DoD Influenza, injectable, Madin [place] Canine Kidney, preservative free, quadrivalent 1 2019 DAVIDSON CHEN [id number] 893 171 Seqirus (SEQ) complet ed Influenza , injectabl e, Madin Mariajose Canine Kidney, preservat virgie free, quadrival ent DoD measles, mumps and rubella virus vaccine 1 2019 KATH LOPEZ [id number] 03 Merck (MSD) compl et ed measles, [...] toxoid conjugate vaccine (MCV4O) 2019 KATH LOPEZ [id number] 136 Sanofi Pasteur (PMC) complet ed meningoco ccal oligosacc haride (groups A, C, Y and W-135) diphtheri a toxoid conjugate vaccine (MCV4O) DoD Adenovirus, type 4 and type 7, live, oral 2019 KATH LOPEZ [id number] 143 [facility] ([facility]) complet ed Adenoviru s, type 4 and type 7, live, oral DoD Influenza, injectable, Madin [place] Canine Kidney, preservative free, quadrivalent 1 2019 KATH LOPEZ [id number] 893 171 Seqirus (SEQ) complet ed Influenza , injectabl e, Madin [place] Canine Kidney, preservat virgie free, quadrival ent [...] ADM Date DC Date Status [facility] [id number] JUVENAL MAYA 11/26 Released w/o Limitations [facility] Dillan carroll(MCR D Hearing Conserv ation) [facility] n([facility]D Optometry Clinic) OUTPATIENT [id number] DAVE LAGUNAS Damaris 11/26 Released w/o Limitations [facility] Dillan carroll(MCR D Optomet ry Clinic) [facility] n(MCRD [employer]) OUTPATIENT [id number] INITIAL APPOINT MENT FOR IMMUNIZ ATYOLY CHEN DAVIDSONKATLYN DAVIS 12/02 Released w/o Limitations [facility] Dillan carroll(MCR D [employer] ) [facility] melita(MCRD Recruit Sick Call) OUTPATIENT [id number] Notes Entered by: TYRONE LAGUNA 15 Dec 2019 0813 ------- ------- ------- ------- -- ISO-Pos sible Sinusit is DELL PIZARRO 12/14 Sick at Home/Quarter s [facility] Dillan carroll(MCR D Recruit Sick Call) [facility] melita(MCRD Recruit Sick Call) OUTPATIENT [id number] Notes Entered by: TYRONE LAGUNA 18 Dec 2019 0738 ------- ------- ------- ------- -- ISO- URI f/u DELL PIZARRO 12/17 Released w/o Limitations [facility] Dillan carroll(MCR D Recruit Sick Call) [facility] melita(MCRD Recruit Sick Call) OUTPATIENT [id number] Notes Entered by: TYRONE LAGUNA 19 Dec 2019 0733 ------- ------- ------- ------- -- MRP- Rib Pain DELL PIZARRO 12/18 Released with Work/Duty Limitations [facility] Dillan glen(MCR D Recruit Sick Call) [facility] n([facility] Rec[employer]) OUTPATIENT [id number] Notes Entered by: Thong MCNAIR 19 Jan 2020 1442 ------- ------- ------- ------- -- INITIAL VISIT FOR IMMUNIZ ATIONS JIN URBINA 01/18 Released w/o Limitations [facility] Dillan carroll([facility] Rec[employer] ) [facility] Sparkle hua([facility] Med Dispo) OUTPATIENT [id number] Notes Entered by: Scott THOMPSON 27 Jan 2020 1033 ------- ------- ------- ------- -- YAMEL SHAFFER/ JUSTINE WELDON 01/26 Released w/o Limitations [facility] Dillan carroll([facility] Med Dispo) Procedures Combined list of: 1) Procedures from Department of Veterans Affairs facilities going back up to thelast 18 months, not all VA non-surgical procedures are included; 2) All procedures from the Department of Defense facilities. Procedure Procedure Type Code Date Perfomer Comments Sour e PSYCHIATRIC DIAGNOSTIC EVALUATION 0 [facility] SKIN TEST; TUBERCULOSIS, INTRADERMAL 0 [facility] MENINGOCOCCAL CONJUGATE VACCINE, SEROGROUPS A, C, W, Y, QUADRIVALENT, DIPHTHERIA TOXOID CARRIER (MENACWY-D) OR [id number] CARRIER (MENACWY-CRM), FOR INTRAMUSCULAR USE 0 [facility] SCREENING TEST OF VISUAL ACUITY, QUANTITATIVE, BILATERAL 0 [facility] PHYS/OTH QUALIFIED HEALTH PSYCHOSOCIAL REHABILITATION COUNSELOR QUALIFIED,EDUCATION ,TRAIN,LICENSURE/RE GULATION (WHEN APPLICABLE) EDUC SER RENDERED TO PATS IN A GRP SETTING (EG,,OBESIT Y,OR DIABETIC INSTRUCT) 0 [facility] Threshold Audiogram (Pure Tone) Automated Threshold Audiogram (Pure Tone) Automated 0208T JUVENLA MAYA Dr.-[employer] [employer] Educational [facility] -Supervised Group Educational Services 92919 JUVENAL MAYA [facility] Screening Test Of Visual Acuity, Quantitative, Bilateral Screening Test Of Visual Acuity, Quantitative, Bilateral 52321 DAVE LAGUNAS [facility] Vaccines Viral Measles, Mumps and Rubella, Live Vaccines Viral Measles, Mumps and Rubella, Live 24237 KATH LOPEZ MMR; Series #: 1; 0.5 mL; SC; Left Arm; Mfg: Merck; Lot: [id number]; VIS given (Darcy: 04/24/2019). [facility] Vaccines Viral Polio, Inactivated (Salk) Vaccines Viral Polio, Inactivated (Salk) 29663 KATH LOPEZ IPV; Series #: 1; 0.5 mL; IM; Right Arm; Mfg: Seqirus; Lot: [id number]; VIS given (Darcy: 07/09/19; 07/15/15 - Multiple). [facility] Hepatitis A Vaccine Adult Dosage (Intramuscular Use) Hepatitis A Vaccine Adult Dosage (Intramuscular Use) 19876 KATH LOPEZ Hep A (Adult); Series #: 1; 1.0 mL; IM; Left Arm; Mfg: [employer]; Lot: [id number]; VIS given (Darcy: 03/29/2016). [facility] Tdap Vaccine Tdap Vaccine 32968 KATH LOPEZ T dap; Series #: 1; 0.5 mL; IM; Left Arm; Mfg: [employer]; Lot: [id number]; VIS given (Darcy: 11/03/14). [facility] Immunization Administration One Vaccine Immunization Administration One Vaccine 55531 KATH LOPEZ [facility] Immunization Administration Each Additional Vaccine Immunization Administration Each Additional Vaccine [address] Supervised Injection Intramuscular Antibiotic Supervised Injection Intramuscular Antibiotic 98484 KATH LOPEZ Venipuncture Venipuncture 20779 KATH LOPEZ D oD Immunization Admin Intranasal / Oral Each Additional Vaccine Immunization Admin Intranasal / Oral Each Additional Vaccine 89572 KATH LOPEZ Vaccines Adenovirus Type 4 Live, For Oral Use Vaccines Adenovirus Type 4 Live, For Oral Use 15265 KATH LOPEZ Vaccines Adenovirus Type 7 Live, For Oral Use Vaccines Adenovirus Type 7 Live, For Oral Use 71735 KATH LOPEZ DoD Tdap Vaccine Tdap Vaccine 32928 GREEN, LUCAS A DoD Vaccines Viral Polio, Inactivated (Salk) Vaccines Viral Polio, Inactivated (Salk) 29932 GREEN, LUCAS A DoD Skin Test Anergy Tuberculin Intradermal Skin Test Anergy Tuberculin Intradermal 37668 LUCAS MCNAIR Social History Combined list of available smoking, tobacco, and other social history from Department of Defense and Veterans Affairs facilities. Social History Type Response Date Comment Sour e This section is an empty social history section. DoD
--- OUTSIDE RECORDS SUMMARY | 2025-05-07 12:46 | XMS_ITS | Clinical Summary ---
Author Organization [facility] Address [address] [place] [address] Care Team Providers Care Salesperson Floor Coverings Name Role Phone Radha Bartlett APRN Primary [...] Vaccines (1 - 3-dose SCDM series) 2023 [id number] Vaccine (1 - season) 2024 [facility]-Influenza Vaccine [...] Screen Nonreactive Nonreactive 08/09/2022 1:33 AM EST [facility] Blood Venous blood specimen / Unknown Venipuncture / Unknown 08/08/2022 11:02 PM EST 08/08/2022 11:27 PM EST Denzel Mcdaniel MD LAB BLOOD ORDERABLES Final Resu lt [facility] [address] [place] [address] * Hepatitis C Antibody - ED (08/08/2022 11:02 PM EST) Hepatitis C Antibody Negative Negative 08/09/2022 1:32 AM EST [facility] Blood Venous blood specimen / Unknown Venipuncture / Unknown 08/08/2022 11:02 PM EST 08/08/2022 11:27 PM EST Denzel Mcdaniel MD LAB BLOOD ORDERABLES Final Resu lt Performing Organization Address City/[facility] Co de Phone Number [facility] [address] [place] [address] from Last 3 Months or Most Recently Relevant to Health Maintenance Insurance [facility] MEDICAID Care Teams Salesperson Floor Coverings Relationship Specialty Start Date End Date Radha Bartlett APRN [address] [facility] [address] [place] [address] PCP - General 08/06/22
--- NOTE | 2025-05-07 13:00 | CA_ITS ---
APPROVED REPORT EXAM: Comprehensive 2D, Doppler, and color-flow Echocardiogram Inclusion Manager: Judith Kennedy RVT Ht: 5 ft 11 in Wt: 157lbs BSA: 1.90 BP: 119/65 mmHg Indications: CHEST PAIN 2D Dimensions Aortic Root 2.11 cm M: 3.1 - 3.7 LA Volume 24.20 mL Left Atrium 2.72 cm M: 3.0 - 4.0 LA Volume Index 12.74 mL/m2 (M/F) 16-34 RVID Base (AP4) 2.75 cm (M/F) 2.5-4.1 EF AP4 50.40 % LVOT 2.13 cm (M/F) 1.5-2.5 GL Strain -19.7 % M-Mode Dimensions RVDd 2.35 cm (0.9-2.6) LVDd 4.54 cm (3.5-5.7) Ao Diam 2.75 cm (2.0-3.7) LVDs 2.78 cm (3.5-5.7) IVSd 1.10 cm (0.6-1.1) PWd 0.56 cm (0.6-1.1) EF (Teich) 69.30% FS 38.80% EDV (Teich) 94.40 mL TAPSE 2.06 (<1.7) ESV (Teich) 29.00 mL LV Diastology E Decel Time 192 (160-240 msec) E/A Ratio 2.1 MED E' 14.4 (>= 7 cm/sec) E'/MED E' Ratio 5.76 (<= 14) LAT E' 6.4 (>= 10 cm/sec) E/LAT E' Ratio 12.95 (<= 14) Aortic Valve LVOT Max 88.0 (70-110 cm/s) HILAYR Index 1.57 cm2/m2 LVOT VTI 16.89 cm AoV Peak Nav. 102.0 (50-130 cm/s) AO Peak GR. 4.70 mmHg AO Mean GR. 2.40 (<5 mmHg) AO VTI 20.2 (18-25 cm) HILARY (VTI) 2.98 (2.5-4.5 cm2) Mitral Valve MV E Max Nav. 83.0 (40-130 cm/s) MV A Velocity 39.0 (40-130 cm/s) E/A Ratio 2.11 MV Decel. Time 192 (160-240 ms) Tricuspid Valve TR P. Velocity 161.00 cm/s RAP Estimate 8.00 mmHg RVSP 18.30 mmHg Left Ventricle The left ventricle is normal size. Left ventricular systolic function is normal. The left ventricular ejection fraction is within the normal range. There is normal left ventricular wall thickness. There is normal LV segmental wall motion. The left ventricular diastolic function is normal. LVEF is 55% Right Ventricle The right ventricle is normal size. The right ventricular systolic function is normal. Atria The left atrium size is normal. The right atrium size is normal. There is no color Doppler evidence of interatrial shunt. Aortic Valve The aortic valve opens well. There is no hemodynamically significant aortic valvular stenosis. No aortic regurgitation is present. Mitral Valve The mitral valve is normal in structure. No evidence of mitral valve stenosis. Trace mitral regurgitation is present. Tricuspid Valve The tricuspid valve leaflets are thin and pliable. Trace tricuspid regurgitation. RVSP is normal. Pulmonic Valve The pulmonary valve is grossly normal in structure. Trace pulmonic valve regurgitation is present. Great Vessels The aortic root is normal in size. IVC is normal in size and collapses >50% with inspiration. Pericardium There is no pericardial effusion. Other Information Study Quality: Adequate Conclusion Normal biventricular systolic function. No significant valvular stenosis or regurgitation. Electronically signed by : Rachel Alberto MD 05/07/2025 23:26:31
== END 2025-05-07 23:59 | disposition home or self-care (01) ==
LOC: RT 12:44
PROVIDERS: PCP Nurse Practitioner Family; Visit Provider Nurse Practitioner
DX: R07.89 Other chest pain (principal); R53.83 Other fatigue
CPT/HCPCS: 93306

== ENCOUNTER 2025-07-23 10:33 | Outpatient (CLI) | payer MEDICAID, SELFPAY ==
[2025-07-23 10:43] LABS: Lyme Ab IgM CIA ND
--- OUTSIDE RECORDS SUMMARY | 2025-07-23 11:03 | XMS_ITS | Clinical Summary ---
Author Organization [facility] Address [address] [place] [address] Care Team Providers Care Agent Telegrapher Name Role Phone Radha Bartlett APRN Primary Care Provider [phone] Allergies No known active allergies Social History [...] Vaccines (1 - 3-dose SCDM series) 2023 [id number] Vaccine (1 - season) 2025 [facility]-Influenza Vaccine (#1) 2025 [facility]-DTaP,Tdap,and Td Vaccines [...] Screen Nonreactive Nonreactive 08/09/2022 1:33 AM EST [facility] Blood Venous blood specimen / Unknown Venipuncture / Unknown 08/08/2022 11:02 PM EST 08/08/2022 11:27 PM EST Denzel Mcdaniel MD LAB BLOOD ORDERABLES Final Resu lt [facility] [address] [place] [address] * Hepatitis C Antibody - ED (08/08/2022 11:02 PM EST) Hepatitis C Antibody Negative Negative 08/09/2022 1:32 AM EST [facility] Blood Venous blood specimen / Unknown Venipuncture / Unknown 08/08/2022 11:02 PM EST 08/08/2022 11:27 PM EST Denzel Mcdaniel MD LAB BLOOD ORDERABLES Final Resu lt Performing Organization Address City/[facility] Co de Phone Number [facility] [address] [place] [address] from Last 3 Months or Most Recently Relevant to Health Maintenance Insurance [facility] [place] [address] Care Teams Agent Telegrapher Relationship Specialty Start Date End Date Radha Bartlett APRN [address] [facility] [address] [place] [address] PCP - General 08/06/22
--- OUTSIDE RECORDS SUMMARY | 2025-07-23 11:04 | XMS_ITS | Data Portability ---
Author Organization [employer] [facility] Address [address] [place] [address] Assessment Encounter Date Assessment Date Assessment LastModified by Organization Details LastModified Time 07/12/2023 07/12/2023 Patient has negative POC testing at this time. Advised patient to treat symptomatically with [id number] Tylenol or Motrin and to utilize Mucinex if the congestion and cough continues. Instructed to increase fluids and return for further testing in 3 to 5 days if symptoms worsen or do not resolve. Will also prescribe ondansetron for symptomatic relief. [email or web address] Not available 07/12/2023 15:01:42 Plan of Treatment Reminders Order Date Submit Date Provider Last Modified By Organization Details Last Modified Time Details Appointments None recorded. Lab CMP, serum or plasma 2024 025 [facility] [address] [place], [address], 5 09:08:32 CBC w/ auto diff 2024 025 [facility] [address] [place], [address], 5 09:08:31 lipid panel, serum 2024 025 [facility] [address] [place], [address], 5 09:08:32 TSH + free T4, serum 2024 025 V[facility]), [address] [facility], [place], [address], 5 09:08:30 HbA1c (hemoglobin A1c), blood 2024 025 VINEET [facility] ([place]), [address] [facility], [place], [address], 5 09:08:33 vitamin D, 25-hydroxy, total, serum 2024 025 VINEET [facility] ([place]), [address], [place], [address], 5 09:08:33 rapid SARS CoV 2 Ag, QL, IA, upper respiratory specimen [address], [address], 3 14:54:01 rapid flu (A+B) [address], [address], 3 14:54:00 Referral None recorded. Procedures None recorded. Surgeries None recorded. [facility] [address], [address], 5 11:42:02 holter monitor 2024 0[facility] [address], [address], 5 11:42:02 Medication Orders escitalopra m 10 mg tablet 2024 025 [email or web address] [facility], [address] [place] [address], [address], 15:22:30 ondansetron 8 mg disintegrat ing tablet 2022 023 [email or web address] 38 [facility], [address] [place] [address], [address], 13:17:10 Patient TargetsNo targets recorded. Patient Instructions Encounter Date Encounter Id Patient Instructions Last Modified By Organization Details Last Modified Time 03/26/2025 [id number] chest pain: care instructions Not available 03/26/2025 13:53:01 [facility] Packet Adult Not available 03/26/2025 13:45:58 Reason for Referral None Reported. Results Created Date Observation Date Name Description Value Unit Range Abnormal Flag Note LastModifiedBy Organization Detail LastModifiedTime 07/12/2007/12/2023 rapid flu (A+B) Flu A negati ve Not Available [address], [address], 07/12/2023 14:33:17 07/12/20 23 07/12/2023 rapid flu (A+B) Flu B negati ve Not Available [address], [address], 07/12/2023 14:33:17 07/12/20 23 07/12/2023 rapid SARS CoV 2 Ag, QL, IA, upper respi rator y speci men SARS CoV Ag negati ve Not Available [address], [address], 07/12/2023 14:33:16 03/26/20 25 03/27/2025 TSH+F REE T4 TSH 1.540 uIU/m L 0.450- 4.500 normal Not Available [facility] ([facility]) [address] [facility], [place], [address], 03/27/2025 09:08:30 03/26/2003/27/2025 TSH+F REE T4 T4,free(dire ct) 1.15 NG/dL 0.82-1 .77 normal Not Available [facility] ([facility]) [address] [place], [address], 03/27/2025 09:08:30 03/26/2003/27/2025 CBC WITH DIFFE RENTI AL/PL ATELE T WBC 7.2 x10e3 /uL 3.4-10 .8 normal Not Available [facility] ([facility]) [address] [place], [address], 03/27/2025 09:08:31 03/26/2003/27/2025 CBC WITH DIFFE RENTI AL/PL ATELE T RBC 4.72 x10e6 /uL 4.14-5 .80 normal Not Available [facility] ([facility]) [address] [place], [address], 03/27/2025 09:08:31 03/26/2003/27/2025 CBC WITH DIFFE RENTI AL/PL ATELE T hemoglobin 13.9 g/dL 13.0-1 7.7 normal Not Available [facility] ([facility]) [address] [place], [address], 03/27/2025 09:08:31 03/26/2003/27/2025 CBC WITH DIFFE RENTI AL/PL ATELE T hematocrit 42.4 % 37.5-5 1.0 normal Not Available [facility] ([facility]) [address] [place], [address], 03/27/2025 09:08:31 03/26/2003/27/2025 CBC WITH DIFFE RENTI AL/PL ATELE T MCV 90 fL 79-97 normal Not Available [facility] ([facility]) [address] [place], [address], 03/27/2025 09:08:31 03/26/2003/27/2025 CBC WITH DIFFE RENTI AL/PL ATELE T MCH 29.4 pg 26.6-3 3.0 normal Not Available [facility] ([facility]) [address] [facility], [place], [address], 03/27/2025 09:08:31 03/26/2003/27/2025 CBC WITH DIFFE RENTI AL/PL ATELE T MCHC 32.8 g/dL 31.5-3 5.7 normal Not Available [facility] ([facility]) [address] [facility], [place], [address], 03/27/2025 09:08:31 03/26/2003/27/2025 CBC WITH DIFFE RENTI AL/PL ATELE T RDW 12.2 % 11.6-1 5.4 Not Available [facility] ([facility]) [address] [facility], [place], [address], 03/27/2025 09:08:31 03/26/2003/27/2025 CBC WITH DIFFE RENTI AL/PL ATELE T platelets 296 x10e3 /uL 150-45 0 normal Not Available [facility] ([facility]) [address] [facility], [place], [address], 03/27/2025 09:08:31 03/26/2003/27/2025 CBC WITH DIFFE RENTI AL/PL ATELE T neutrophils 52 % not estab. normal Not Available [facility] ([facility]) [address] [place], [address], 03/27/2025 09:08:31 03/26/20 25 03/27/2025 CBC WITH DIFFE RENTI AL/PL ATELE T lymphs 38 % not estab. normal Not Available [facility] ([facility]) [address] [place], [address], 03/27/2025 09:08:31 03/26/20 25 03/27/2025 CBC WITH DIFFE RENTI AL/PL ATELE T monocytes 6 % not estab. normal Not Available [facility] ([facility]) [address] [facility], [place], [address], 03/27/2025 09:08:31 03/26/20 25 03/27/2025 CBC WITH DIFFE RENTI AL/PL ATELE T eos 3 % not estab. normal Not Available [facility] ([facility]) [address] [facility], [place], [address], 03/27/2025 09:08:31 03/26/20 25 03/27/2025 CBC WITH DIFFE RENTI AL/PL ATELE T basos 1 % not estab. normal Not Available [facility] ([facility]) [address] [facility], [place], [address], 03/27/2025 09:08:31 03/26/20 25 03/27/2025 CBC WITH DIFFE RENTI AL/PL ATELE T immature cells HEALTHCARE ECONOMICS MANAGER Not Available [facility] ([facility]) [address] [place], [address], 03/27/2025 09:08:31 03/26/20 25 03/27/2025 CBC WITH DIFFE RENTI AL/PL ATELE T neutrophils (absolute) 3.8 x10e3 /uL 1.4-7. 0 normal Not Available [facility] ([facility]) [address] [place], [address], 03/27/2025 09:08:31 03/26/20 25 03/27/2025 CBC WITH DIFFE RENTI AL/PL ATELE T lymphs (absolute) 2.7 x10e3 /uL 0.7-3. 1 normal Not Available [facility] ([facility]) [address] [place], [address], 03/27/2025 09:08:31 03/26/20 25 03/27/2025 CBC WITH DIFFE RENTI AL/PL ATELE T monocytes(ab solute) 0.5 x10e3 /uL 0.1-0. 9 normal Not Available [facility] ([facility]) [address] [facility], [place], [address], 03/27/2025 09:08:31 03/26/20 25 03/27/2025 CBC WITH DIFFE RENTI AL/PL ATELE T eos (absolute) 0.2 x10e3 /uL 0.0-0. 4 normal Not Available [facility] ([facility]) [address] [facility], [place], [address], 03/27/2025 09:08:31 03/26/20 25 03/27/2025 CBC WITH DIFFE RENTI AL/PL ATELE T baso (absolute) 0.0 x10e3 /uL 0.0-0. 2 normal Not Available [facility] ([facility]) [address] [facility], [place], [address], 03/27/2025 09:08:31 03/26/2003/27/2025 CBC WITH DIFFE RENTI AL/PL ATELE T immature granulocytes 0 % not estab. Not Available [facility] ([facility]) [address] [facility], [place], [address], 03/27/2025 09:08:31 03/26/2003/27/2025 CBC WITH DIFFE RENTI AL/PL ATELE T immature grans (abs) 0.0 x10e3 /uL 0.0-0. 1 Not Available [facility] ([facility]) [address] [facility], [place], [address], 03/27/2025 09:08:31 03/26/20 25 03/27/2025 CBC WITH DIFFE RENTI AL/PL ATELE T NRBC HEALTHCARE ECONOMICS MANAGER Not Available [facility] ([facility]) [address] [facility], [place], [address], 03/27/2025 09:08:31 03/26/20 25 03/27/2025 CBC WITH DIFFE RENTI AL/PL FLORLE T hematology comments: HEALTHCARE ECONOMICS MANAGER Not Available [facility] ([facility]) [address] [facility], [place], [address], 03/27/2025 09:08:31 03/26/20 25 03/27/2025 COMP. METAB OLIC PANEL (14) glucose 77 mg/dL 70-99 normal Not Available [facility] ([facility]) [address] [facility], [place], [address], 03/27/2025 09:08:31 03/26/20 25 03/27/2025 COMP. METAB OLIC PANEL (14) BUN 10 mg/dL 6-20 normal Not Available [facility] ([facility]) [address] [facility], [place], [address], 03/27/2025 09:08:31 03/26/20 25 03/27/2025 COMP. METAB OLIC PANEL (14) creatinine 1.08 mg/dL 0.76-1 .27 normal Not Available [facility] ([facility]) [address] [facility], [place], [address], 03/27/2025 09:08:31 03/26/20 25 03/27/2025 COMP. METAB OLIC PANEL (14) eGFR 96 mL/mi n/1.7 3 >59 normal Not Available [facility] ([facility]) [address] [facility], [place], [address], 03/27/2025 09:08:31 03/26/20 25 03/27/2025 COMP. METAB OLIC PANEL (14) BUN/creatini ne ratio 9 9-20 normal Not Available [facility] ([facility]) [address] [facility], [place], [address], 03/27/2025 09:08:31 03/26/20 25 03/27/2025 COMP. METAB OLIC PANEL (14) sodium 139 mmol/ L 134-14 4 normal Not Available [facility] ([facility]) [address] [place], [address], 03/27/2025 09:08:31 03/26/20 25 03/27/2025 COMP. METAB OLIC PANEL (14) potassium 3.9 mmol/ L 3.5-5. 2 normal Not Available [facility] ([facility]) [address] [facility] [place], [address], 03/27/2025 09:08:31 03/26/20 25 03/27/2025 COMP. METAB OLIC PANEL (14) chloride 101 mmol/ L 96-106 normal Not Available [facility] ([facility]) [address] [place], [address], 03/27/2025 09:08:31 03/26/20 25 03/27/2025 COMP. METAB OLIC PANEL (14) carbon dioxide, total 24 mmol/ L 20-29 normal Not Available [facility] ([facility]) [address] [facility] [place], [address], 03/27/2025 09:08:31 03/26/20 25 03/27/2025 COMP. METAB OLIC PANEL (14) calcium 9.9 mg/dL 8.7-10 .2 normal Not Available [facility] ([facility]) [address] [facility] [place], [address], 03/27/2025 09:08:31 03/26/20 25 03/27/2025 COMP. METAB OLIC PANEL (14) protein, total 7.1 g/dL 6.0-8. 5 normal Not Available [facility] ([facility]) [address] [facility] [place], [address], 03/27/2025 09:08:31 03/26/20 25 03/27/2025 COMP. METAB OLIC PANEL (14) albumin 4.8 g/dL 4.3-5. 2 normal Not Available [facility] ([facility]) [address] [place], [address], 03/27/2025 09:08:31 03/26/20 25 03/27/2025 COMP. METAB OLIC PANEL (14) globulin, total 2.3 g/dL 1.5-4. 5 Not Available [facility] ([facility]) [address] [place], [address], 03/27/2025 09:08:31 03/26/20 25 03/27/2025 COMP. METAB OLIC PANEL (14) bilirubin, total 1.2 mg/dL 0.0-1. 2 normal Not Available [facility] ([facility]) [address] [place], [address], 03/27/2025 09:08:31 03/26/20 25 03/27/2025 COMP. METAB OLIC PANEL (14) alkaline phosphatase 67 IU/L 44-121 normal Not Available [facility]) [address] [place], [address], 03/27/2025 09:08:31 03/26/20 25 03/27/2025 COMP. METAB OLIC PANEL (14) AST (SGOT) 15 IU/L 0-40 normal Not Available [facility] ([facility]) [address] [place], [address], 03/27/2025 09:08:31 03/26/20 25 03/27/2025 COMP. METAB OLIC PANEL (14) ALT (SGPT) 14 IU/L 0-44 normal Not Available [facility] ([facility]) [address] [place], [address], 03/27/2025 09:08:31 03/26/20 25 03/27/2025 LIPID PANEL cholesterol, total 214 mg/dL 100-19 9 above high normal Not Available [facility] ([facility]) [address] [place], [address], 03/27/2025 09:08:32 03/26/20 25 03/27/2025 LIPID PANEL triglyceride s 124 mg/dL 0-149 normal Not Available [facility] ([facility]) [address] [place], [address], 03/27/2025 09:08:32 03/26/20 25 03/27/2025 LIPID PANEL HDL cholesterol 38 mg/dL >39 below low normal Not Available [facility] ([facility]) [address] [place], [address], 03/27/2025 09:08:32 03/26/20 25 03/27/2025 LIPID PANEL VLDL cholesterol david 23 mg/dL 5-40 Not Available [facility] ([facility]) [address] [place], [address], 03/27/2025 09:08:32 03/26/20 25 03/27/2025 LIPID PANEL LDL chol calc ([facility]) 153 mg/dL 0-99 above high normal Not Available [facility] ([facility]) [address] [place], [address], 03/27/2025 09:08:32 03/26/20 25 03/27/2025 LIPID PANEL LDL calc comment: HEALTHCARE ECONOMICS MANAGER Not Available [facility] ([facility]) [address] [place], [address], 03/27/2025 09:08:32 03/26/20 25 03/27/2025 HEMOG LOBIN A1C hemoglobin A1C 5.2 % 4.8-5. 6 normal Predi abete s: 5.7 - 6.4 Diabe beckie: >6.4 Glyce daquan contr ol for adult s with diabe beckie: <7.0 Not Available [facility] ([facility]) [address] [place], [address], 03/27/2025 09:08:33 03/26/20 25 03/27/2025 VITAM IN D, 25-HY DROXY vitamin D, 25-hydroxy 23.7 NG/mL 30.0-1 00.0 below low normal Vitam in D defic iency has been defin ed by the Insti tute of Medic ine and an Endoc rinpaty Socie ty pract ice guide line as a level of serum 25-OH vitam in D less than 20 ng/mL (1,2) . The Endoc rine Socie ty went on to furth er defin e vitam in D insuf ficie ncy as a level betwe en 21 and 29 ng/mL (2). 1. IOM (Inst itute of Medic ine). 2010. Dieta ry refer ence juan pablo es for calci um and D. Sebas chappell [place]: The [facility] . 2. Barbra clay [place], Neelima ann [place], Valente off-F errar i BUSTOS, et al. Evalu ation , treat ment, and preve ntion of vitam in D defic iency : an Endoc rine Socie ty clini david pract ice guide line. JCEM. 2010; 96(7) :1911 -30. Not Available [facility] ([facility]) [address] [facility], [place], [address], 03/27/2025 09:08:33 11/09/19 24 11/09/2023 XR, chest , 2 view No observ ation record ed. [email or web address] [facility] [address], [place], [address], 11/19/2023 15:46:04 11/09/19 24 11/09/2023 elect martin navarrogr am, routi ne ECG, 12 leads min; inter preta tion and repor t (PROC ) No observ ation record ed. [email or web address] [facility] [address], [place], [address], 11/19/2023 15:45:44 08/26/20 24 08/26/2024 US, scrot um No observ ation record ed. [email or web address] [facility] [address], [place], [address], 08/26/2024 13:51:59 03/26/2003/27/2025 alcira r monit or No observ ation record ed. [email or web address] [address], [address], 03/27/2025 08:41:58 03/26/20 elect martin peacock am No observ ation record ed. [email or web address] [address], [address], 03/26/2025 17:05:03 04/05/2004/05/2025 alcira r monit or No observ ation record ed. [email or web address] [address], [address], 04/13/2025 09:05:09 04/30/2004/30/2025 imagi ng/di agnos tic resul t No observ ation record ed. [place] [id number] [facility], [place], [address], 04/30/2025 15:47:45 05/07/20 25 05/07/2025 imagi ng/di agnos tic resul t No observ ation record ed. [place] [id number] [facility] [place], [address], 05/07/2025 23:30:14 Result Notes None recorded. Problems Name Problem SNOMED Code Status Onset Date Resolution Date Notes Provider Name and Address Organization Details Recorded Time Impacted cerumen in right ear 52362390148 15216 Completed 202008/15/2022 Problem Code: H61.21; Problem Code Type: ICD-10; ANA Olmedo - [employer] 11:29:05 Acute suppurat virgie otitis media 228546243 Completed 202008/15/2022 BRYON willoughby, [employer] 2 11:29:05 Otalgia of right ear 6865667987 Completed 202008/15/2022 BRYON SPENCER null, [employer] 2 11:29:05 Body mass index 20-24 - normal 521327744 Active 2020 Not Available [facility] 2 22:23:04 Disorder of upper respirat ory system 629871753 Completed 202008/15/2022 Problem Code: J06.9; Problem Code Type: ICD-10; BRYON willoughby, [employer] 2 11:29:05 COVID-19 808197670 Completed 202108/15/2022 Problem Code: U07.1; Problem Code Type: ICD-10; BRYON SPENCER null, [employer] 2 11:29:05 Viral syndrome 945062579 Active 2022 DALLAS NOLAND, [employer] [address] [place] [address], [address] , [employer] 3 15:01:11 Generali zed anxiety disorder 76990674 Active 2024 NAVIN GALEANO, HEALTHCARE ECONOMICS MANAGER [address] [place] [address], [address] , [place] [employer] 5 13:44:58 Chest pain 61370821 Active 2024 NAVIN GALEANO, HEALTHCARE ECONOMICS MANAGER [address] [place] [address], [address] , [place] [employer] 5 13:46:26 Fatigue 87980061 Active 2024 NAVIN GALEANO, HEALTHCARE ECONOMICS MANAGER [address] [place] [address], [address] , [employer] 5 13:47:11 Bradycar ihsan 09939223 Active 2024 NAVIN GALEANO NP [address] [place], [address] , [employer] 5 09:05:52 Notes:*Problem Name: Encount er for general adult medical examination *ICD-10 Codes: Z00.00 *Problem Status: Chronic *Comments: OCN77Fifom: 'Z00.0'; *Problem Code: Z00.0 *Problem Code Type: ICD-10 *Note Date: 08/19/2021 Problem Notes None recorded. Medical Equipment None Reported. Allergies No known drug allergies Medications Name Sig Start Date Stop Date Status Note LastModified by Organization Details LastModified Time prednisone 20 mg tablet 08/15 completed Not Available Not Available Not Available ondansetron 8 mg disintegrat ing tablet Place 1 tablet every 8 hours by transling ual route as needed. 03/26 completed Not Available Not Available Not Available ibuprofen 400 mg tablet 07/12 completed Not Available Not Available Not Available cefdinir 300 mg capsule take 1 capsule (300 mg) by oral route every 12 hours x 10 days 07/23 completed Not Available Not Available Not Available escitalopra m 10 mg tablet TAKE 1 TABLET BY MOUTH EVERY DAY active Not Available Not Available No t Available Vitals Date Recorded Body height Body mass index (BMI) Body weight Body temperature Heart rate Oxygen saturation Oxygen saturation in Arterial blood by Pulse oximetry Systolic And Diastolic Provider Name and Address Organization Details Last Updated DateTime 3 172.72 cm 22.9 kg/m2 46344.0 1 g 98 [degF] 73 /min 99 % 99 % 94/59 mm[Hg] BRYON SPENCER [employer] 3 10:13:21 Date Recorded Body height Body mass index (BMI) Body weight Body temperature Oxygen saturation Oxygen saturation in Arterial blood by Pulse oximetry Heart rate Systolic And Diastolic Provider Name and Address Organization Details Last Updated DateTime 5 180.34 cm 21.7 kg/m2 17721.9 2 g 97.3 [degF] 98 % 98 % 68 /min 118/73 mm[Hg] Michelle Ledesma [employer] 5 13:17:06 Date Recorded Body height Body mass index (BMI) Body weight Body temperature Heart rate Oxygen saturation Oxygen saturation in Arterial blood by Pulse oximetry Systolic And Diastolic Provider Name and Address Organization Details Last Updated DateTime 3 172.72 cm 23.1 kg/m2 17706.0 4 g 98.2 [degF] 79 /min 97 % 97 % 118/80 mm[Hg] CALEB COLLAZO [employer] 3 14:28:32 Date Recorded Body height Body mass index (BMI) Body weight Body temperature Heart rate Oxygen saturation Oxygen saturation in Arterial blood by Pulse oximetry Systolic And Diastolic Provider Name and Address Organization Details Last Updated DateTime 2 172.72 cm 23.3 kg/m2 99749.0 7 g 97.4 [degF] 85 /min 99 % 99 % 88/57 mm[Hg] BRYON MYJENNIFER [employer] 2 11:28:31 Social History Question Answer Notes LastModified by Organizat ion Details LastModified Time Tobacco Smoking Status Current Every Day Smoker CALEB COLLAZO [facility] [employer], [employer]. 07/12/2023 14:26:38 Do You Have An Advance Directive? No Information n ot available 08/15/2022 Is Your Home Air Conditioned? Yes Information not available 08/15/2022 In The 14 Days Before Symptom Onset, Have You Had Close Contact With A Laboratory-confirm ed COVID-19 While That Case Was Ill? No Information n ot available 08/15/2022 In The 14 Days Before Symptom Onset, Have You Had Close Contact With A Person Who Is Under Investigation For COVID-19 While That Person Was Ill? No Information not available 08/15/2022 Have You Been To An Area Known To Be High Risk For COVID-19? No Information not available 08/15/2022 What Type Of Diet Are You Following? REGULAR Information n ot available 08/15/2022 Who Is Your Employer? [email or web address] Information not available 07/12/2023 Have There Been Any Changes To Your Family Or Social Situation? No Information no t available 08/15/2022 When Did You Quit Smoking? 1-5yearssince lastcigarette Information not available 08/15/2022 Are There Any Guns Present In Your Home? No Information not available 08/15/2022 Do You Have A Medical Power Of Repairer General? No Information not available 08/15/2022 What Was The Date Of Your Most Recent Tobacco Screening? 03/26/2025 [email or web address] Information not available 03/26/2025 What Is Your Current Pack Years? 10packyears [email or web address] Information not available 07/12/2023 What Is Your Relationship Status? Information not available 08/15/2022 Are You Sexually Active? Yes [email or web address] Information not available 03/26/2025 Do You Have Smoke And Carbon Monoxide Detectors In Your Home? Yes Information not available 08/15/2022 Are You Passively Exposed To Smoke? No Information no t available 08/15/2022 Are There Any Smokers In Your House? No Information not available 08/15/2022 How Much Tobacco Do You Smoke? 0.5 PPD [email or web address] Information not available 07/12/2023 Do You Use Sunscreen Routinely? No Information not available 08/15/2022 Has Tobacco Cessation Counseling Been Provided? No Information not available 08/15/2022 Have You Recently Traveled Abroad? No Information not available 08/15/2022 Are You Currently In School? No Information not available 08/15/2022 Do You Have Any Dietary Restrictions? No Information not available 08/15/2022 Sex: Male Functional Status Question Answer Note LastModified by Organizat ion Details LastModified Time Do you use any illicit or recreational drugs? No Information not available 08/15/2022 Do you or have you ever used any other forms of tobacco or nicotine? No Information not available 08/15/2022 What is your level of alcohol consumption? Occasional [email or web address] Information not available 07/12/2023 Are you currently employed? Yes Information not available 08/15/2022 Do you have transportation difficulties? No Information not available 08/15/2022 Are you able to care for yourself independently? Yes Information not available 08/15/2022 Mental Status None recorded. Family History Relationship Description Onset Age of this Age Resolved Age Notes LastModified by Organization Details LastModified Time Father No current problems or disability [email or web address] Not available 14:33:37 Mother No current problems or disability [email or web address] Not available 14:33:37 Medical History Condition Response Hospitalizations N Emergency room visit since last appointm ent. N Past Encounters Encounter ID Performer Location Encounter Start Date Encounter Closed Date Diagnosis/Indication Diagnosis SNOMED-CT Code Diagnosis ICD10 Code Diagnosis IMO Codes Diagnosis Note [id number] Radha Bartlett APRN [place] [id number] 0 08/15/2022 10:46:15 08/15/2022 11:50:15 Influenza caused by Influenza A virus [id number] J09.X2 RTW tomorrow 08/16/22 without restrictio n. I will not be completing any FMLA or disability paperwork for him pertaining to this absence. [id number] Radha KincaidMAYA potter [place] [id number] 0 12/22/2022 10:03:27 12/22/2022 10:34:44 Crush injury of right hand [id number] S67.21XD May RTW tomorrow 12/23/22 to full duty as he is requesting without restrictio ns. [id number] DALLAS NOLAND, [employer]-[place] [id number] 0 07/12/2023 14:22:54 07/12/2023 15:03:21 Viral screening [id number] Z11.59 Nausea [id number] R11.0 Viral syndrome [id number] B34.9 [id number] NAVIN GALEANO NP [place] [id number] 0 03/26/2025 12:41:29 04/01/2025 11:42:02 Generalized anxiety disorder [id number] F41.1 [id number] Start escitalopr am, will discuss increase in dose at next visit.MHI packet given, is interested in starting therapy. Chest pain [id number] R07. 9 [id number] ECG shows bradycardi a Place holter monitor, discuss with patient event recording. Discussed reason to seek emergency care, including chest pain with shortness of breath. Fatigue 37964210 R53.83 [id number] Diabetes m ellitus screening 539084302 Z13.1 [id number] Health Concerns Section Related Observation LastModified by Organization Detai ls LastModified Time None Recorded Concern Status LastModified by Organization Details LastModified Time None Recorded Advance Directives Directive N: Payers Insurance Date Sequence Insurance Name Policy Number Policy Lilly Covered Member ID Lilly Member ID Guarantor Name 03/26/2025 2 [place] [id number] Sergo Mae [id number] Sergo Mae 04/01/2025 1 [employer] [place] (MEDICA[place] Sergo Mae [id number] Sergo Mae Notes Date Note Type Note Provider Name and Address Organization Details Recorded Time 08/15/2022 text/html Transition Care ManagementReported by PatientROS as noted in the HPI ER 08/06/22 and 08/08/22 - Dx with FLU A both visits. Pt states today I'm here because I haven't been able to work since before . I went to the ER twice and was told I had an enlarged heart and was put on strict bedrest for 8 days. I now need a note to go back to work. I reviewed both ER records from with patient today. He was diagnosed with influenza. He was not prescribed any medications. His EKG and CXR were normal. He had no evidence of formal diagnosis of an enlarged heart and was not noted to be placed on bedrest at any point. This is the second time I have seen this gentleman after he had an extended absence from work and he came in requesting a work note with an untrue statement. Radha Bartlett APRN [address] [facility], [place], [address], [facility] [employer] 08/15/2022 13:14:28 12/22/2022 text/html Emergency Depart ment Follow-Up RecordReported by PatientEmergency Room Follow-Up RecordFor discharge information, patient reportsname of ed __ [facility] discharge date: (please enter in format 'mm/dd/yyyy') (12/16/2022)(patient).R OS as noted in the HPI Injured at work - here for follow up after initial ER visit. Right hand dominant. 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 He had xrays at that were neg for fx. He did have some numbness in right 3-5h fingers and he says that has resolved. He wore the hand splint he was given at ER until today. He says he now has no pain, no loss of sensation or deficit and is requesting to RTW tomorrow without restriction. Radha Bartlett APRN [address] [place], [address], [employer] 12/22/2022 17:50:11 07/12/2023 text/html ROS as noted in the HPI Symptoms starting yesterday. Mild, non-productive cough. Body aches. Nausea/vomiting/diarrhe a. DALLAS NOLAND, [employer] [address] [place], [address], [employer] 07/12/2023 15:02:08 03/26/2025 text/html ROS as noted in the HPI Patient presents today to establish care and with primary concern for chest pain that started 7-8 months ago at that time was happening every few weeks, now the chest pain is happening multiple times a day. Pain is described as a tightness or ache that is relieved by rest and is sometimes but not always accompanied by shortness of breath that is also relieved by rest+. Notes this most often happens at work when he is under stress, but lately has been happening at home from time to time. Notes he is going through a significant increase in stress in his personal life.Denies health history other that anxiety for which he was previously seeing a therapist as well as taking medication. It has been sometime since he has been treated for his anxiety, but expresses he feels like it might be necessary now with the increase in stress. NAVIN GALEANO NP [address] [place], [address], [facility] [employer] 03/30/2025 10:52:51
[2025-07-23 12:35] LABS: Hepatitis C Ab Qual. W/ RFX NEGATIVE (Negative)
[2025-07-24 08:14] LABS: Hepatitis B Surface Antigen Negative (Negative)
[2025-07-24 14:54] LABS: Lyme Ab CIA Negative (Negative)
== END 2025-07-23 23:59 | disposition home or self-care (01) ==
LOC: LAB 10:35
PROVIDERS: PCP Nurse Practitioner Family; Visit Provider Nurse Practitioner
DX: S70.362A Insect bite (nonvenomous), left thigh, initial encounter (principal); Z11.4 Encounter for screening for human immunodeficiency virus [HIV]; Z11.59 Encounter for screening for other viral diseases; Z91.89 Other specified personal risk factors, not elsewhere classified; W57.XXXA Bitten or stung by nonvenomous insect and other nonvenomous arthropods, initial encounter
CPT/HCPCS: 36415; 86618; 86803; 87389